=== PATIENT | male | born 1930 | race African-American/Black ===

== ENCOUNTER 2017-11-24 05:40 | Inpatient (IN) | payer OTHER ==
[~2017-11-24] VITALS: Ht 177.8 cm; Wt 72.6 kg
[~2017-11-24 05:40] MED LIST: AMLO10TA80 PO; LOSA50TA20 PO
[2017-11-24] MEDS ORDERED: NIFE20CA MT (06:07)
[2017-11-24] MEDS ORDERED: HYDR-4135 MT (06:07)
[2017-11-24 06:56] LABS: BASOPHILS % 0.7 % (0.0-2.0); EOSINOPHILS % 1.8 % (0.0-5.0); HEMATOCRIT. 32.7 % (42.0-52.0); HEMOGLOBIN. 11.1 g/dL (14.0-18.0); LYMPHOCYTES % 14.6 % (20.0-50.0); MEAN CORPUSCULAR HEMOGLOBIN 31.1 pg (28.0-32.0); MEAN CORPUSCULAR VOLUME 91.2 fL (80.0-94.0); MEAN PLATELET VOLUME 8.9 fl (7.4-10.4); MONOCYTES % 7.1 % (2.0-8.0); NEUTROPHILS % 75.8 % (40.0-76.0); PLATELET 141 x1000/uL (130-400); RED BLOOD CELL COUNT 3.58 mill/uL (4.7-6.1); RED CELL DISTRIBUTION WIDTH 14.9 % (11.6-14.6)
[2017-11-24] MEDS ORDERED: LEVOFLOXACIN 750MG PREMIX 150 ML IV ONE (07:00)
[2017-11-24] MEDS ORDERED: PIPERACILLIN/TAZ 3.375G PREMIX 50 ML IV ONE (07:00)
[2017-11-24] MEDS ORDERED: VANCOMYCIN 1 G PREMIX 200 ML IV ONE (07:00)
[2017-11-24] MEDS ORDERED: CALCIUM CHLORIDE 1GM/10ML SYR IV ONE (07:00)
[2017-11-24 07:02] LABS: CHLORIDE 93 mEq/L (98-107)
[2017-11-24 07:05] LABS: PROTHROMBIN TIME 10.4 sec (9.1-11.1)
[2017-11-24] MEDS ORDERED: ASPIRIN 325MG TABLET PO ONE (08:00)
[2017-11-24] MEDS ORDERED: ASPIRIN 325MG EC TABLET PO ONE (08:16)
[2017-11-24] MEDS ORDERED: NITROGLYCERIN 0.4MG TABLET SL SL PRN (09:30)
[2017-11-24] MEDS ORDERED: VANCOMYCIN 1 G PREMIX 200 ML IV SCH (09:30)
[2017-11-24] MEDS ORDERED: IPRATROPIUM/ALBUTEROL 0.5-3(2.5)MG/3ML NEB INH PRN (09:30)
[2017-11-24] MEDS ORDERED: GUAIFENESIN 200MG/10ML SUGAR FREE UDC PO PRN (09:30)
[2017-11-24] MEDS ORDERED: MAGNESIUM/ALUMINUM HYDROXIDE/SIMETHICONE 30ML UDC PO PRN (09:30)
[2017-11-24] MEDS ORDERED: MORPHINE SULFATE 4 MG/ML CPJ (NOT FOR IM USE) IV PRN (09:30)
[2017-11-24] MEDS ORDERED: TRAMADOL 50MG TABLET PO PRN (09:30)
[2017-11-24] MEDS ORDERED: ACETAMINOPHEN 325MG TABLET PO PRN (09:30)
[2017-11-24] MEDS ORDERED: DOCUSATE SODIUM 100MG CAPSULE PO PRN (09:30)
[2017-11-24] MEDS ORDERED: ONDANSETRON HCL 4MG/2ML INJ IV PRN (09:30)
[2017-11-24] MEDS ORDERED: DIPHENHYDRAMINE 50MG/ML VIAL IV PRN (09:30)
[2017-11-24] MEDS ORDERED: ZOLPIDEM TARTRATE 5MG TABLET PO PRN (09:30)
[2017-11-24] MEDS ORDERED: HYDRALAZINE 20MG/ML VIAL IV PRN (10:00)
[2017-11-24 10:15] VITALS: BP 164/64
[2017-11-24] MEDS: AMLODIPINE 2.5MG TABLET PO SCH (11:00)
[2017-11-24] MEDS ORDERED: CARV3.1242 MT (11:09)
[2017-11-24] MEDS: ENOXAPARIN 30MG/0.3ML SYR SUBCUT SCH (11:46)
[2017-11-24 12:00] VITALS: BP 164/64
[2017-11-24] MEDS ORDERED: VANCOMYCIN 500 MG PREMIX 100 ML IV NR (12:30)
[2017-11-24] MEDS: SEVELAMER CARBONATE 800 MG TABLET PO SCH ×2 (13:18→17:50)
[2017-11-24] MEDS: FAMOTIDINE 20MG TABLET PO SCH (13:18)
[2017-11-24 16:00] VITALS: BP 162/60
[2017-11-24 16:17] LABS: CREATINE KINASE MB FRACTION 3.1 ng/mL (0.5-3.6)
[2017-11-24 20:00] VITALS: BP 170/70
[2017-11-24] MEDS: PIPERACILLIN/TAZ 2.25G PREMIX 50 ML IV SCH (20:48)
[2017-11-24] MEDS: CLONIDINE 0.1MG TABLET PO PRN (20:52)
[2017-11-24] MEDS: METOPROLOL TARTRATE 25MG TABLET PO SCH (21:00)
[2017-11-25] VITALS (7 sets, daily range): BP systolic 144–168; BP diastolic 58–67
[2017-11-25] MEDS: FAMOTIDINE 20MG TABLET PO SCH (06:36)
[2017-11-25] MEDS: CLONIDINE 0.1MG TABLET PO PRN ×2 (06:37→20:03)
[2017-11-25 07:22] LABS: HEMATOCRIT. 30.1 % (42.0-52.0); HEMOGLOBIN. 10.3 g/dL (14.0-18.0); MEAN CORPUSCULAR HEMOGLOBIN 30.9 pg (28.0-32.0); MEAN CORPUSCULAR VOLUME 90.4 fL (80.0-94.0); MEAN PLATELET VOLUME 8.2 fl (7.4-10.4); PLATELET 125 x1000/uL (130-400); RED BLOOD CELL COUNT 3.33 mill/uL (4.7-6.1); RED CELL DISTRIBUTION WIDTH 14.5 % (11.6-14.6)
[2017-11-25 07:55] LABS: CHLORIDE 96 mEq/L (98-107)
[2017-11-25] MEDS: SEVELAMER CARBONATE 800 MG TABLET PO SCH ×3 (07:57→18:44)
[2017-11-25] MEDS: PIPERACILLIN/TAZ 2.25G PREMIX 50 ML IV SCH (07:58)
[2017-11-25 08:04] LABS: LDL CHOLESTEROL 84 mg/dL (5-100); PHOSPHORUS 2.5 mg/dL (2.5-4.9)
[2017-11-25 08:06] LABS: CREATINE KINASE 134 IU/L (39-308); CREATINE KINASE MB FRACTION 1.8 ng/mL (0.5-3.6); HDL CHOLESTEROL 31 mg/dL (40-59)
[2017-11-25] MEDS: AMLODIPINE 2.5MG TABLET PO SCH (08:34)
[2017-11-25] MEDS ORDERED: FOLIC ACID/VITAMIN B COMP W-C TABLET PO SCH (09:00)
[2017-11-25] MEDS: ENOXAPARIN 30MG/0.3ML SYR SUBCUT SCH (09:00)
[2017-11-25] MEDS ORDERED: ASPIRIN 325MG EC TABLET PO SCH (09:00)
[2017-11-25] MEDS: METOPROLOL TARTRATE 25MG TABLET PO SCH (09:00)
[2017-11-25 09:44] LABS: PLATELET ESTIMATE SLIGHTLY DECREASED
[2017-11-25] MEDS ORDERED: VANCOMYCIN 1 G PREMIX 200 ML IV NR (12:00)
[2017-11-25] MEDS ORDERED: HYDRALAZINE HCL 50MG TABLET PO SCH (14:00)
[2017-11-26] MEDS ORDERED: AMLODIPINE 5MG TABLET PO SCH (09:00)
[2017-11-26] MEDS ORDERED: ASPIRIN 81MG EC TABLET PO SCH (09:00)
== END 2017-11-25 20:25 | disposition short-term general hospital (02) | DRG 871 ==
LOC: ER 05:40 → 6WST 07:47 → EDBEDREQSVC 07:49 → EDBEDREQ 07:49 → ENRESERV 08:55
PROVIDERS: ADMIT Internal Medicine; ATTEND Internal Medicine
PROC: 5A1D70Z Performance of Urinary Filtration, Intermittent, Less than 6 Hours Per Day (ICD-10-PCS; principal; 2017-11-24)
DX: A41.9 Sepsis, unspecified organism (principal); I21.4 Non-ST elevation (NSTEMI) myocardial infarction; I50.33 Acute on chronic diastolic (congestive) heart failure; J18.9 Pneumonia, unspecified organism; J96.00 Acute respiratory failure, unspecified whether with hypoxia or hypercapnia; N18.6 End stage renal disease; E44.0 Moderate protein-calorie malnutrition; I13.2 Hypertensive heart and chronic kidney disease with heart failure and with stage 5 chronic kidney disease, or end stage renal disease; I42.0 Dilated cardiomyopathy; D63.8 Anemia in other chronic diseases classified elsewhere; E11.22 Type 2 diabetes mellitus with diabetic chronic kidney disease; E11.319 Type 2 diabetes mellitus with unspecified diabetic retinopathy without macular edema; E11.42 Type 2 diabetes mellitus with diabetic polyneuropathy; E78.5 Hyperlipidemia, unspecified; E87.6 Hypokalemia; I27.20 Pulmonary hypertension, unspecified; I44.0 Atrioventricular block, first degree; J98.01 Acute bronchospasm; N40.0 Benign prostatic hyperplasia without lower urinary tract symptoms; Z87.891 Personal history of nicotine dependence; Z90.49 Acquired absence of other specified parts of digestive tract; Z99.2 Dependence on renal dialysis; Z68.23 Body mass index [BMI] 23.0-23.9, adult; Z79.899 Other long term (current) drug therapy
CPT/HCPCS: 36415; 71045; 80053; 80061; 80202; 82550; 82553; 83036; 83605; 83735; 83880; 84100; 84484; 85025; 85610; 87040; 87804; 93005; 93306; 93970; 96365; 96368; 96375; 99291; J1650; J1956; J2543; J3370; J3490; J7030; J7050